=== PATIENT | male | born 1990 | race Caucasian/White ===

== ENCOUNTER 2016-09-11 21:55 | Emergency (ER) | payer SELFPAY ==
[~2016-09-11] VITALS: Ht 180.3 cm; Wt 70.0 kg
[2016-09-11 21:57] VITALS: BP 119/68; PULSE 86; RESP 15; TEMP 98.8; O2SAT 100
[2016-09-11] MEDS ORDERED: PERM5CRE11 TOPICAL (23:53)
[2016-09-11] MEDS ORDERED: BACT800T5 PO (23:53)
--- NOTE | 2016-09-12 00:05 | PD ---
HPI Chief Complaint: Skin Problem Time Seen by Provider: 23:59 Travel History International Travel<30 days: No Contact w/Intl Traveler<30days: No Traveled to known affect area: No History of Present Illness HPI 25 year white male presents to emergency department with complaints of a worsening rash to his lower extremities and trunk. He states that this has started off on his right lower leg initially. He does do construction. He states that he travels across the [place] [facility]. He typically works and very wet and unusual undergarments. He states that he had gotten a rash on his right lower leg which has now involved both lower legs and a few spots on his upper trunk and buttocks area. The areas are very pruritic in nature. He has been scratching them and now he has a few that have become increasingly red, swollen and tender. There is a small amount of pus discharge. He denies any fever or chills. No nausea vomiting. He also states that he had exposure to fleas in the house a month ago but that has been resolved. [facility] Past Medical History Medical History: Denies Significant Hx Tetanus Vaccination: < 5 Years Past Surgical History Surgical History: No Previous Surgery Social History Alcohol Use: Yes (weekends only ) Tobacco Use: Yes (2PPD) Substance Use: No Allergies-Medications Reported Meds & Prescriptions Reported Meds & Active Scripts Active Bactrim DS (Sulfamethoxazole-Trimethoprim) 800-160 Mg Tab 1 Tab PO BID Review of Systems Except as stated in HPI: all other systems reviewed are Neg Physical Exam Narrative GENERAL: This is a well-nourished, well-developed patient, in no apparent distress. SKIN: Patient has excoriated and multiple macular areas on his lower extremities , trunk and buttocks. There are a few follicular pustular lesions on the lower leg which I suspect are secondary from scratching. I see no serpiginous lesions. No papules or vesicles. No abscess. HEAD: Atraumatic. Normocephalic. EYES: PERRL, EOMI, no discharge or injection. No scleral icterus. EARS: Clear NOSE: Nasal turbinates appear normal. THROAT: Mucosa pink and moist. Airway patent. NECK: Trachea midline. supple, moves head freely. LUNGS: Clear to auscultation. CV: Regular in rhythm. ABDOMEN: Soft nontender. EXT: No clubbing cyanosis or edema. Data Data Last Documented VS Vital Signs Date Time Temp Pulse Resp B/P Pulse Ox O2 Delivery O2 Flow Rate FiO2 09/11/16 21:57 98.8 86 15 119/68 100 Room Air MDM Medical Decision Making Medical Screen Exam Complete: Yes Emergency Medical Condition: Yes Medical Record Reviewed: Yes Differential Diagnosis MDM: High Differential diagnoses: Abscess, folliculitis, cellulitis, lymphangitis, abrasion, contact dermatitis, scabies Narrative Course I explain to the patient I suspect these are more of a contact dermatitis or possible insect bites with secondary folliculitis from scratching. I've agreed to treat him for possible scabies. He is to continue to take medications at home and take Benadryl for itching. Patient agrees to treatment plan of follow- up. Diagnosis Primary Impression: Insect bites Qualified Code: W57.XXXA - Insect bites, initial encounter Additional Impression: Folliculitis Patient Instructions: General Instructions Additional Instructions: Rest. Medications as directed. 50 mEq of Benadryl every 6 hours as needed for itching. Aveeno bath. Follow-up with a medical doctor in one week. Return to the ER for any problems. Med/Other Pt SpecificInfo: Prescription(s) given Scripts Permethrin Topical (Elimite Topical)5% Cream1 Applic TOPICAL ONCE #1 TUBE Prov:Lor Borrero DO 09/11/16 Sulfamethoxazole-Trimethoprim (Bactrim DS)800-160 Mg Tab1 Tab PO BID #20 TAB Prov:Lor Borrero DO 09/11/16 Disposition: 01 DISCHARGE HOME Condition: Stable Blair Wilkinson Sep 12, 2016 00:05
== END 2016-09-12 00:13 | disposition home or self-care (01) ==
LOC: NEPK 21:55
DX: S80.862A Insect bite (nonvenomous), left lower leg, initial encounter (principal); S80.861A Insect bite (nonvenomous), right lower leg, initial encounter; L08.9 Local infection of the skin and subcutaneous tissue, unspecified; W57.XXXA Bitten or stung by nonvenomous insect and other nonvenomous arthropods, initial encounter; F17.290 Nicotine dependence, other tobacco product, uncomplicated
CPT/HCPCS: 99284